=== PATIENT | female | born 1980 | race Caucasian/White ===

== ENCOUNTER 2019-06-14 17:04 | Emergency (ER) | payer MEDICAID, OTHER ==
--- NOTE | 2019-06-14 18:07 | ED ---
- HPI Summary HPI Summary: Patient is a 38 her old female who presents emergency department for evaluation of first trimester . She states she is roughly 6 weeks gestation. She was seen at [facility] today and had an abnormal ultrasound and was sent to the ER for further evaluation. Patient denies fever, chest pain, shortness of breath, abdominal pain, vaginal bleeding or discharge, urinary symptoms. A0. No prior complications. Patient denies past medical history. Symptoms are moderate in severity. No current modifying factors. - History of Current Complaint Chief Complaint: EDOBProblems Stated Complaint: 6 WKS PREG/OB PROBLEM PER PT Time Seen by Provider: 06/14/19 17:58 Hx Obtained From: Patient Pain Intensity: 0 - Assessment Hx Now: No SAB: 0 IEA: 0 - Additional Pertinent History Maternal Blood Type and Rh: B Positive - Allergies/Home Medications Allergies/Adverse Reactions: Allergies Allergy/AdvReac Type Severity Reaction Status Date / Time MS Pollen Extract Allergy Intermediate Eyes Verified 02/06/13 11:41 [Pollen Extract] Itchy/Swollen/Red/Watery Home Medications: Home Medications Glucosamine Sulfate Dipot Chlr [Gnp Glucosamine Maximum S] 1,000 mg PO DAILY [History Confirmed 06/14/19] PMH/Surg Hx/FS Hx/Imm Hx Previously Healthy: Yes Endocrine/Hematology History: Denies: Hx Diabetes, Hx Thyroid Disease Cardiovascular History: Denies: Hx Hypertension Respiratory History: Denies: Hx Asthma, Hx Chronic Obstructive Pulmonary Disease (COPD) GI History: Denies: Hx Ulcer Infectious Disease History: No Infectious Disease History: Denies: Hx Hepatitis, Hx Human Immunodeficiency Virus (HIV), Traveled Outside the [place] in Last 30 Days - Family History Known Family History: Positive: None, Non-Contributory Family History: denies cardiovascular issues in family lineage - Social History Occupation: Unemployed Lives: With Family Alcohol Use: Occasionally Substance Use Type: Reports: None Smoking Status (MU): Never Smoked Tobacco Review of Systems Constitutional: Negative Cardiovascular: Negative Respiratory: Negative Gastrointestinal: Negative Genitourinary: Negative All Other Systems Reviewed And Are Negative: Yes Physical Exam - Physical Exam Triage Information Reviewed: Yes Vital Signs Reviewed: Yes Appearance: Positive: Well-Appearing - Pt. sitting on bed in NAD. Pleasant. present. Skin: Positive: Warm, Dry Head/Face: Positive: Normal Head/Face Inspection Eyes: Positive: Normal, EOMI Neck: Positive: Supple Respiratory/Lung Sounds: Positive: Clear to Auscultation, Breath Sounds Present Cardiovascular: Positive: Normal, RRR Abdomen Description: Positive: Other: - appearing. Abd. is soft and nontender throughout. Neurological: Positive: Normal, Alert, Oriented to Person Place, Time Psychiatric: Positive: Affect/Mood Appropriate Diagnostics - Vital Signs Vital Signs Temp Pulse Resp BP Pulse Ox 06/14/19 17:29 97.9 F 84 16 104/60 100 - Laboratory Result Diagrams: 06/14/19 18:55 Lab Statement: Any lab studies that have been ordered have been reviewed, and results considered in the medical decision making process. Course/Dx - Course Course Of Treatment: Patient presenting for evaluation in early . She is afebrile well-appearing. She has no abdominal pain or vaginal bleeding. Basic labs and ultrasound ordered to confirm IUP. U/S per virtual radiology: IMPRESSION: 1. Early intrauterine with estimated composite gestational age of 5. weeks and 6 day but without demonstrated cardiac activity. 2. Second gestational sac without contents. RECOMMENDATION: 1. Short interval followup to clarify the status of the second gestational sac. and to document cardiac activity. Results discussed with patient and . Advised her she will need to follow up with OB for repeat ultrasound and blood work for further evaluation. We'll return to the ER for abdominal pain or vaginal bleeding. Patient understands and agrees with plan. - Differential Diagnosis/HQI/PQRI: Incomplete , Threatened , Early - Diagnoses Provider Diagnoses: Discharge ED - Sign-Out/Discharge Documenting (check all that apply): Patient Departure Patient Received Moderate/Deep Sedation with Procedure: No - Discharge Plan Condition: Good Disposition: HOME Patient Education Materials: Threatened Miscarriage (ED), (ED) Referrals: Yazmin Reid MD [Medical Doctor] - Additional Instructions: Please call OB office tomorrow to schedule a close follow up appointment You will need repeat blood work and ultrasound Return to ER for abdominal pain, vaginal bleeding, or if concerned - Billing Disposition and Condition Condition: GOOD Disposition: Home
[2019-06-14 19:12] LABS: ABS Eosinophils 0.2 10^3/ul (0-0.6); ABS Lymphocytes 2.2 10^3/ul (1.0-4.8); ABS Monocytes 0.5 10^3/ul (0-0.8); ABS Neutrophils 5.1 10^3/ul (1.5-7.7); Eosinophil % 2.3 %; Hematocrit 41 % (35-47); Lymphocyte % 26.8 %; Mean Corpuscular HGB Conc 34 g/dL (31-36); Mean Corpuscular Hemoglobin 31 pg (27-31); Mean Corpuscular Volume 92 fL (80-97); Mean Platelet Volume 7.4 fL (7.4-10.4); Nucleated Red Blood Cells % 0.2; Platelet Count 263 10^3/uL (150-450); Red Blood Count 4.48 10^6 /uL (3.70-4.87); Red Cell Distribution Width 13 % (10-15)
[2019-06-14 19:54] LABS: Urine Appearance Clear; Urine Bacteria Absent (Absent); Urine Bilirubin Negative (Negative); Urine Blood 1+ (Negative); Urine Color Straw; Urine Glucose Negative (Negative); Urine Ketones Negative (Negative); Urine Nitrite Negative (Negative); Urine Protein Negative (Negative); Urine Red Blood Cell Trace(0-2/hpf) (Absent); Urine Specific Gravity 1.011 (1.010-1.030); Urine Squamous Epithelial Cell Present (Absent); Urine Urobilinogen Negative (Negative); Urine White Blood Cell Trace(0-5/hpf) (Absent)
[2019-06-14 20:57] VITALS: BP 121/69
== END 2019-06-14 20:48 | disposition home or self-care (01) ==
LOC: ED 17:04
DX: O36.8910 Maternal care for other specified fetal problems, first trimester, not applicable or unspecified (principal); Z3A.01 Less than 8 weeks gestation of pregnancy; Z79.899 Other long term (current) drug therapy
CPT/HCPCS: 36415; 76817; 81003; 81015; 84702; 85025; 87086; 99283

== ENCOUNTER 2019-09-23 13:12 | Emergency (ER) | payer OTHER ==
[2019-09-23 13:53] VITALS: BP 107/71
--- NOTE | 2019-09-23 14:04 | UC ---
Dental HPI - HPI Summary HPI Summary: Pt presents to with 3 days progressive right upper dental pain. Pt states several years ago had tooth extracted - states a piece of tooth was "left in" pt states has swelling and pain at gum. STates pain radiates to right ear. No fever, chills. No analgesia taken. No fever, chills, rash + temperature sensitivity. no bad taste in mouth. Due for period. medications as entered in EMR by triage reviewed - History of Current Complaint Chief Complaint: UCDentalProblem Stated Complaint: DENTAL PAIN Time Seen by Provider: 09/23/19 14:00 Hx Obtained From: Patient, Other: - Sussy Brownlee | Reference #: [id number] Hx Last Menstrual Period: one month ago Pain Intensity: 8 - Allergies/Home Medications Allergies/Adverse Reactions: Allergies Allergy/AdvReac Type Severity Reaction Status Date / Time pollen extracts Allergy Eyes Verified 09/23/19 13:53 Itchy/Swollen/Red/Watery PMH/Surg Hx/FS Hx/Imm Hx Previously Healthy: Yes - Surgical History Surgical History: None - Family History Known Family History: Positive: None, Non-Contributory Family History: denies cardiovascular issues in family lineage - Social History Occupation: Employed Full-time - starts new job Wednesday Lives: With Family Alcohol Use: Occasionally Substance Use Type: None Smoking Status (MU): Never Smoked Tobacco - Immunization History Most Recent Influenza Vaccination: 07/23/15 Most Recent Tetanus Shot: 06/25/15 Most Recent Pneumonia Vaccination: none Review of Systems All Other Systems Reviewed And Are Negative: Yes Constitutional: Positive: Negative Skin: Positive: Negative Eyes: Positive: Blurred Vision ENT: Positive: Dental Pain Respiratory: Positive: Negative Cardiovascular: Positive: Negative Gastrointestinal: Positive: Negative Physical Exam - Summary Physical Exam Summary: Vital Signs Reviewed: Yes A+Ox3, mild distress Eyes: Conjunctiva Clear, SERGEY. EOM intact and full ENT: Hearing grossly normal TM x 2 clear, no fluid, no mastoid pain, turbinates wnl, no edema, RU tooth - #2 pt with edema, erythema + TTP no fluctuance, no drainage, no bleeding, mmoist, uvula midline, no exudate, no erythema Neck: Positive: Supple Respiratory: Positive: No respiratory distress, No accessory muscle use + CTA throughout no w/r Cardiovascular: RRR nl s1, s2 no m/r CBT <2 sec abd soft + BS nt/nd no guarding, no distension Musculoskeletal Exam: VIERA x 4 without difficulty Strength Intact, ROM Intact Neurological: Positive: Alert, + sensation throughout Psychological: Positive: Normal 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 Skin: Positive: no rash, no ecchymosis Triage Information Reviewed: Yes Vital Signs: Initial Vital Signs Temp 98.4 F 09/23/19 13:50 Pulse 69 09/23/19 13:50 Resp 12 09/23/19 13:50 BP 107/71 09/23/19 13:50 Pulse Ox 100 09/23/19 13:50 Dental Complaint Course/Dx - Course Course Of Treatment: Pt with #2 dental pain, edema progressive x 2 days no fever, chills VSS discomfort and swelling no visible abscess will start abx salt water rinses motrin/apap dental list - Differential Dx/Diagnosis Provider Diagnosis: Pain, dental Discharge ED - Sign-Out/Discharge Documenting (check all that apply): Patient Departure All imaging exams completed and their final reports reviewed: No Studies - Discharge Plan Condition: Stable Disposition: HOME Prescriptions: Penicillin VK 500 MG TAB(NF) [Penicillin VK 500 mg Tab] 500 mg PO TID #30 tab Patient Education Materials: Toothache (ED) Referrals: [facility] REFERR[facility] [Outside] No Primary Care Phys,NOPCP [Primary Care Provider] - Additional Instructions: - Okay to take Tylenol (Acetaminophen) every 6 hours for pain. Take with food. Do NOT take for more than 4-5 days - Take antibiotics as prescribed until gone - Okay to swish and spot warm, salty water over the afftected tooth 2-3 times a day - contact a dentist from the list provided to schedule a follow-up appointment. If you develop fevers, facial swelling, difficulty swalllowing or any other concerns it is recommended you go to the emergency department for further evaluation and treatment - Billing Disposition and Condition Condition: STABLE Disposition: Home
== END 2019-09-23 14:22 | disposition home or self-care (01) ==
LOC: UCEAST 13:12
DX: K08.89 Other specified disorders of teeth and supporting structures (principal); Z91.09 Other allergy status, other than to drugs and biological substances
CPT/HCPCS: 99212; G0463

== ENCOUNTER 2021-07-01 16:28 | Inpatient (IN) ==
[2021-07-01] MEDS ORDERED: Buffered Lidocaine 1% SYRIN 1 ml INTRADERM ONE (17:41)
[2021-07-01] MEDS ORDERED: Lactated Ringers 1000 ml BAG 1,000 ML IV ONE ×2 (17:41→19:57)
[2021-07-01] MEDS ORDERED: Lactated Ringers 1000 ml BAG 1,000 ML IV SCH ×3 (18:00→20:00)
[2021-07-01] MEDS ORDERED: Penicillin G Potassium IV 5,000,000 UNITS in NS 0.9% 100 ml BAG 100 ML IVPB ONE (18:21)
[2021-07-01 18:28] LABS: Urine Benzodiazepine Screen None Detected (None Detect); Urine Cannabinoids Screen None Detected (None Detect); Urine Opiates Screen None Detected (None Detect)
[2021-07-01 19:08] LABS: ABS Basophils 0.1 10^3/ul (0-0.2); ABS Eosinophils 0.1 10^3/ul (0-0.6); ABS Lymphocytes 1.8 10^3/ul (1.0-4.8); ABS Monocytes 0.8 10^3/ul (0-0.8); ABS Neutrophils 7.5 10^3/ul (1.5-7.7); Hematocrit 35 % (35-47); Hemoglobin 11.8 g/dL (12.0-16.0); Lymphocyte % 17.9 %; Mean Corpuscular HGB Conc 34 g/dL (31-36); Mean Corpuscular Hemoglobin 29 pg (27-31); Mean Corpuscular Volume 85 fL (80-97); Mean Platelet Volume 7.2 fL (7.4-10.4); Platelet Count 231 10^3/uL (150-450); Red Blood Count 4.14 10^6 /uL (3.70-4.87); Red Cell Distribution Width 15 % (10-15); White Blood Count 10.2 10^3/uL (3.5-10.8)
[2021-07-01] MEDS ORDERED: OBEPIDURAL 250 ML EPIDURAL ONE (19:20)
[2021-07-01 19:29] LABS: Rapid COVID-19 Molecular Undetected (Undetected)
[2021-07-01] MEDS ORDERED: Sodium Citrate/Citric Acid LIQ 15 ML UDC PO PRN (19:57)
[2021-07-01] MEDS ORDERED: Lactated Ringers 1000 ml BAG 500 ML IV PRN ×2 (19:57)
[2021-07-01] MEDS ORDERED: Phenylephrine 40 mcg/mL 10mL (400mcg) SYRINGE IV PUSH PRN ×2 (19:57)
[2021-07-01] MEDS ORDERED: OBEPIDURAL 250 ML EPIDURAL SCH (20:00)
[2021-07-01] MEDS ORDERED: Oxytocin in LR 20 UNITS/1,000 ML BAG IVPB ONE (21:22)
[2021-07-01] MEDS ORDERED: Penicillin G Potassium IV 3,000,000 UNITS in NS 0.9% 100 ml BAG 100 ML IVPB SCH (23:00)
[2021-07-01] MEDS ORDERED: Witch Hazel PAD JAR ONE (23:42)
[2021-07-01] MEDS ORDERED: Dibucaine 1% OINT 28.35 GM TUBE ONE (23:42)
[2021-07-02 00:07] LABS: Urine Appearance Clear; Urine Bilirubin Negative (Negative); Urine Blood 1+ (Negative); Urine Color Straw; Urine Glucose Negative (Negative); Urine Ketones Negative (Negative); Urine Nitrite Negative (Negative); Urine Protein Negative (Negative); Urine Specific Gravity 1.013 (1.002-1.030); Urine Urobilinogen Negative (Negative)
[2021-07-02 00:20] LABS: Urine Bacteria Absent (Absent); Urine Red Blood Cell Absent (Absent); Urine Squamous Epithelial Cell Present (Absent); Urine White Blood Cell Absent (Absent)
[2021-07-02] MEDS ORDERED: Oxytocin in LR 20 UNITS/1,000 ML BAG IVPB ONE (01:39)
[2021-07-02] MEDS ORDERED: Glycerin ADULT 2.4 gm SUPP PR PRN (02:45)
[2021-07-02] MEDS ORDERED: Witch Hazel PAD JAR TOPICAL PRN (02:45)
[2021-07-02] MEDS ORDERED: Dibucaine 1% OINT 28.35 GM TUBE PR PRN (02:45)
[2021-07-02] MEDS ORDERED: Calcium Carb (TUMS) 500 mg CHEW TAB PO PRN (02:47)
[2021-07-02] MEDS ORDERED: Oxytocin in LR 20 UNITS/1,000 ML BAG IVPB SCH (03:00)
[2021-07-03 08:00] VITALS: BP 99/66
[2021-07-03 08:30] LABS: ABS Eosinophils 0.2 10^3/ul (0-0.6); ABS Lymphocytes 2.4 10^3/ul (1.0-4.8); ABS Monocytes 0.6 10^3/ul (0-0.8); ABS Neutrophils 5.5 10^3/ul (1.5-7.7); Hematocrit 35 % (35-47); Hemoglobin 11.6 g/dL (12.0-16.0); Lymphocyte % 27.8 %; Mean Corpuscular HGB Conc 33 g/dL (31-36); Mean Corpuscular Hemoglobin 29 pg (27-31); Mean Corpuscular Volume 87 fL (80-97); Mean Platelet Volume 7.1 fL (7.4-10.4); Platelet Count 218 10^3/uL (150-450); Red Blood Count 3.99 10^6 /uL (3.70-4.87); Red Cell Distribution Width 15 % (10-15); White Blood Count 8.7 10^3/uL (3.5-10.8)
== END 2021-07-03 14:02 | disposition home or self-care (01) | DRG 560 ==
LOC: MCHOBOUT 16:28 → MCHOB 17:47
PROVIDERS: ADMIT Midwife; ATTEND Midwife